=== PATIENT | female | born 1995 | race African-American/Black ===

== ENCOUNTER 2019-04-01 12:13 | Emergency (ER) | payer MEDICAID ==
[~2019-04-01] VITALS: Ht 154.9 cm; Wt 53.1 kg
[2019-04-01 13:25] LABS: Basophils # (auto) 0 uL; Basophils % (auto) 0.4 % (0.0-2.0); Eosinophils # (auto) 0 uL; Eosinophils % (auto) 0.3 % (0.0-7.0); Hematocrit 37.9 % (36.0-46.0); Hemoglobin 12.6 g/dL (12.2-16.2); Lymphocytes # (auto) 1.6 uL; Lymphocytes % (auto) 14.9 % (10.0-50.0); Mean Corpuscular Hgb Conc. 33.3 g/dL (32.0-36.0); Monocytes # (auto) 0.4 uL; Neutrophils # (auto) 8.8 uL; Neutrophils % (auto) 80.4 % (37.0-80.0); Nucleated Red Blood Cells % 0.1 %; Platelet Count (auto) 264 10^3/uL (140-450); Red Blood Cells 4.36 10^6/uL (4.0-5.20); Red Cell Distribution Width 13.5 % (11.8-14.3); White Blood Cell 10.9 10^3/uL (4.4-10.8)
[2019-04-01 13:40] LABS: INR 1.07 (0.9-1.15); Partial Thromboplastin Time 31.4 sec (23.64-32.05)
[2019-04-01 13:43] LABS: Albumin 4.1 g/dL (3.4-5.0); Calcium 9.1 mg/dL (8.5-10.1); Potassium 3.7 mmol/L (3.5-5.1)
[2019-04-01] MEDS ORDERED: SODIUM CHLORIDE 0.9% 1,000 ML IVB ONE (13:53)
[2019-04-01 13:59] LABS: BUN/Creatinine Ratio 13.7; Bilirubin, Total 0.6 mg/dL (0.2-1.0); Total Protein 7.6 g/dL (6.4-8.2)
[2019-04-01] MEDS ORDERED: PROMETHAZINE HCL 25 MG/ML 1ML IV ONE (14:30)
[2019-04-01] MEDS ORDERED: MORPHINE SULF INJ 2 MG/ML SYRINGE 1ML IV ONE (14:30)
[2019-04-01 15:19] LABS: Urine Bacteria NONE SEEN /hpf (None Seen); Urine Blood 3+ /uL (Negative); Urine Mucus FEW (None Seen); Urine Specific Gravity 1.025 (1.001-1.035); Urine WBC 2 /hpf (0 - 5)
[2019-04-01 16:00] VITALS: BP 137/75
[2019-04-01] MEDS ORDERED: ceFAZolin 1GM/50ML 50 ML IV ONE (16:15)
[2019-04-01] MEDS ORDERED: LACT. RINGERS/OXYTOCIN 20UNITS 1,000 ML IV ONE (16:15)
[2019-04-01] MEDS ORDERED: OXYTOCIN 30 UNT in LACTATED RINGER'S 1,000 ML IV ONE (16:15)
== END 2019-04-01 17:33 | disposition home or self-care (01) ==
LOC: ER 12:13
DX: O03.4 Incomplete spontaneous abortion without complication (principal); O21.8 Other vomiting complicating pregnancy; O99.331 Smoking (tobacco) complicating pregnancy, first trimester; Z3A.10 10 weeks gestation of pregnancy
CPT/HCPCS: 36415; 76801; 80053; 81001; 84702; 85025; 85610; 85730; 86850; 86900; 86901; 96361; 96365; 96375; 99284; J0690; J2270; J2550; J7030; J2590

== ENCOUNTER 2020-08-14 22:48 | Inpatient (IN) | payer MEDICAID ==
[~2020-08-14] VITALS: Ht 157.5 cm; Wt 74.8 kg
[2020-08-15 00:07] LABS: Alcohol, Urine < 3.0 mg/dL (0-10); Amphetamine Screen, Urine NEGATIVE (NEGATIVE); Barbiturate Scree,Urine NEGATIVE (NEGATIVE); Benzodiazephine Screen, Urine NEGATIVE (NEGATIVE); Cannabinoid Screen, Urine NEGATIVE (NEGATIVE); Cocaine Screen, Urine NEGATIVE (NEGATIVE); Opiate Scree,Urine NEGATIVE (NEGATIVE); Phencyclidine Screen, Urine NEGATIVE (NEGATIVE)
[2020-08-15] MEDS: LACTATED RINGER'S 1,000 ML IV SCH ×2 (01:27→05:48)
[2020-08-15] MEDS ORDERED: TERBUTALINE SULFATE 1 MG/ML 1ML VIAL SC ONE (02:15)
[2020-08-15] MEDS ORDERED: TERBUTALINE SULFATE 1 MG/ML 1ML VIAL SC SCH (04:45)
== END 2020-08-15 07:40 | disposition short-term general hospital (02) | DRG 563 ==
LOC: LDRP 22:48 → OBSVTOIN 08-15 04:43
PROVIDERS: ADMIT Obstetrics & Gynecology; ATTEND Obstetrics & Gynecology
DX: O60.03 Preterm labor without delivery, third trimester (principal); Z20.822 Contact with and (suspected) exposure to COVID-19; Z3A.35 35 weeks gestation of pregnancy
CPT/HCPCS: 36415; 59025; 76805; 80307; 81002; 84112; 87426; 94760; 96360; 96361; 96372; G0378

== ENCOUNTER 2020-09-04 14:05 | Observation (INO) | payer MEDICAID | END 2020-09-04 14:29 | disposition left against medical advice (07) | LOC: LDRP 14:05 | PROVIDERS: ADMIT Specialist; ATTEND Specialist | DX: O62.9 Abnormality of forces of labor, unspecified (principal); Z3A.37 37 weeks gestation of pregnancy | CPT/HCPCS: G0378 ==